=== PATIENT | male | born 1980 | race Caucasian/White ===

== ENCOUNTER 2018-01-08 14:24 | Emergency (ER) | payer MEDICAID ==
[~2018-01-08] VITALS: Ht 177.8 cm; Wt 84.8 kg
[2018-01-08] MEDS ORDERED: ASPirin 81 mg TAB PO ONE (15:00)
[2018-01-08 15:21] LABS: Basophils # (auto) 0.1 uL; Basophils % (auto) 0.8 % (0.0-2.0); Eosinophils # (auto) 0 uL; Eosinophils % (auto) 0.4 % (0.0-7.0); Hematocrit 46.9 % (41.0-53.0); Hemoglobin 16.3 g/dL (13.5-17.5); Lymphocytes # (auto) 2.5 uL; Lymphocytes % (auto) 23.9 % (10.0-50.0); Mean Corpuscular Hemoglobin 30.8 pg (28.0-32.0); Mean Corpuscular Hgb Conc. 34.7 g/dL (32.0-36.0); Mean Corpuscular Volume 88.5 fL (80.0-100.0); Monocytes # (auto) 0.6 uL; Monocytes % (auto) 5.9 % (0.0-12.0); Neutrophils # (auto) 7.1 uL; Nucleated Red Blood Cells % 0.1 %; Platelet Count (auto) 271 10^3/uL (140-450); White Blood Cell 10.3 10^3/uL (4.4-10.8)
[2018-01-08 15:22] LABS: Urine WBC None Seen /hpf (0 - 3)
[2018-01-08 15:26] VITALS: BP 133/85
[2018-01-08 15:32] LABS: Urine Bacteria NONE SEEN /hpf (None Seen); Urine Blood TRACE /uL (Negative)
[2018-01-08 15:41] LABS: Albumin 4.1 g/dL (3.4-5.0); Anion Gap 7 (5-15); Blood Urea Nitrogen 10 mg/dL (7-18); Calcium 9.2 mg/dL (8.5-10.1); Carbon Dioxide 29 mmol/L (21-32); Chloride 101 mmol/L (98-107); Glucose 106 mg/dL (74-106); Potassium 3.8 mmol/L (3.5-5.1); Sodium 137 mmol/L (136-145)
[2018-01-08 15:49] LABS: Alanine Aminotransferase 49 U/L (16-61); Alkaline Phosphatase 66 U/L (45-117); Aspartate Aminotransferase 26 U/L (15-37); BUN/Creatinine Ratio 7.8; Bilirubin, Total 0.5 mg/dL (0.2-1.0); GFR African American 82 mL/min; GFR Non-African American 67 mL/min; Total Protein 8.6 g/dL (6.4-8.2)
== END 2018-01-08 17:06 | disposition home or self-care (01) ==
LOC: ER 14:24
DX: F41.9 Anxiety disorder, unspecified (principal); R07.89 Other chest pain; F17.210 Nicotine dependence, cigarettes, uncomplicated; F12.90 Cannabis use, unspecified, uncomplicated
CPT/HCPCS: 36415; 71046; 80053; 81001; 84484; 85025; 93005